=== PATIENT | male | born 2000 | race Hispanic/Latino ===

== ENCOUNTER 2019-08-24 10:54 | Emergency (ER) | payer OTHER ==
[~2019-08-24] VITALS: Ht 177.8 cm; Wt 87.4 kg
[2019-08-24 12:19] LABS: BASO % 0.4 % (0.0-1.0); EOS # 0.1 10^3/uL (0.0-0.5); EOS % 1.1 % (0.0-3.0); HEMATOCRIT 46.4 % (42.0-52.0); HEMOGLOBIN 15.7 g/dl (13.5-17.5); LYMPH # 2.7 10^3/uL (1.5-5.0); LYMPH % 36.6 % (24.0-44.0); MEAN CORPUSCULAR HEMOGLOBIN 30.7 pg (27.0-33.0); MEAN CORPUSCULAR HGB CONC 33.8 g/dl (32.0-36.5); MEAN CORPUSCULAR VOLUME 90.8 fl (80.0-96.0); MONO # 0.5 10^3/uL (0.0-0.8); MONO % 6.4 % (0.0-5.0); NEUTROPHILS # 4.1 10^3/uL (1.5-8.5); NEUTROPHILS % 55.4 % (36.0-66.0); PLATELET COUNT, AUTOMATED 249 10^3/uL (150-450); RED BLOOD COUNT 5.11 10^6/uL (4.30-6.10); WHITE BLOOD COUNT 7.4 10^3/uL (4.0-10.0)
[2019-08-24 12:42] LABS: ALBUMIN 4.4 GM/DL (3.2-5.2); ALT/SGPT 70 U/L (12-78); BILIRUBIN,DIRECT 0.1 MG/DL (0.0-0.2); BILIRUBIN,TOTAL 0.7 MG/DL (0.2-1.0); BLOOD UREA NITROGEN 18 MG/DL (7-18); CALCIUM LEVEL 9.8 MG/DL (8.5-10.1); CARBON DIOXIDE LEVEL 29 MEQ/L (21-32); CHLORIDE LEVEL 105 MEQ/L (98-107); CREATININE FOR GFR 0.89 MG/DL (0.70-1.30); GLUCOSE, FASTING 89 MG/DL (70-100); LIPASE 85 U/L (73-393); POTASSIUM SERUM 3.8 MEQ/L (3.5-5.1); SODIUM LEVEL 139 MEQ/L (136-145); TOTAL PROTEIN 7.6 GM/DL (6.4-8.2)
[2019-08-24 14:00] LABS: CHLAMYDIA DNA AMPLIFICATION NEGATIVE (NEGATIVE); GC DNA AMPLIFICATION NEGATIVE (NEGATIVE)
--- NOTE | 2019-08-24 14:15 | REP ---
SCROTAL ULTRASOUND: Real-time sonographic evaluation of the scrotum and contents performed. The testicles are normal in size and echotexture, right testicle measuring 4.3 x 2.9 x 2.9 cm and left testicle 4.5 x 2.1 x 3.3 cm. There is no vesicular mass or torsion, blood flow is seen in each testicle with duplex Doppler evaluation. Along the superolateral margin of the head of the right epididymis, there is a debris-containing cyst 1.4 x 0.8 x 1.0 cm. IMPRESSION: Normal testicles. Debris-containing cyst along the superolateral margin of the head of the right epididymis. Electronically Signed by Don Ivy MD 08/25/2019 04:45 P
[2019-08-24 14:41] VITALS: BP 117/66
--- NOTE | 2019-08-26 09:52 | ED PDOC ---
Post-Departure Follow-Up scrotal us faxed to dr waters and [facility] for fu Severo Mercedes MD Aug 26, 2019 09:52
== END 2019-08-24 14:57 | disposition home or self-care (01) ==
LOC: M ED 10:54
DX: N50.3 Cyst of epididymis (principal); R36.1 Hematospermia

== ENCOUNTER 2019-12-20 21:25 | Emergency (ER) | payer OTHER ==
[~2019-12-20] VITALS: Ht 180.3 cm; Wt 83.7 kg
[2019-12-20 22:15] LABS: BASO % 0.5 % (0.0-1.0); EOS # 0.1 10^3/uL (0.0-0.5); EOS % 0.9 % (0.0-3.0); HEMATOCRIT 43.2 % (42.0-52.0); HEMOGLOBIN 14.9 g/dl (13.5-17.5); LYMPH # 3.2 10^3/uL (1.5-5.0); LYMPH % 41.4 % (24.0-44.0); MEAN CORPUSCULAR HEMOGLOBIN 30.8 pg (27.0-33.0); MEAN CORPUSCULAR HGB CONC 34.5 g/dl (32.0-36.5); MEAN CORPUSCULAR VOLUME 89.4 fl (80.0-96.0); MONO # 0.4 10^3/uL (0.0-0.8); MONO % 5.6 % (0.0-5.0); NEUTROPHILS % 51.5 % (36.0-66.0); PLATELET COUNT, AUTOMATED 265 10^3/uL (150-450); RED BLOOD COUNT 4.83 10^6/uL (4.30-6.10); WHITE BLOOD COUNT 7.7 10^3/uL (4.0-10.0)
--- NOTE | 2019-12-20 23:03 | REPVR ---
PROCEDURE INFORMATION: Exam: CT Abdomen And Pelvis Without Contrast Exam date and time: 12/20/2019 10:46 PM Age: 19 years old Clinical indication: Abdominal pain; Flank; Right; Additional info: Right flank pain; R/O stone TECHNIQUE: Imaging protocol: Computed tomography of the abdomen and pelvis without contrast. Axial, coronal and sagittal reformatted images were created and reviewed. Radiation optimization: All CT scans at this facility use at least one of these dose optimization techniques: automated exposure control; mA and/or kV adjustment per patient size (includes targeted exams where dose is matched to clinical indication); or iterative reconstruction. COMPARISON: No relevant prior studies available. FINDINGS: Liver: Unremarkable. Gallbladder and bile ducts: No radiodense gallstones. No biliary ductal dilatation. Pancreas: Unremarkable. Spleen: Unremarkable. Adrenal glands: Normal. No mass. Kidneys and ureters: No mass. No radiodense calculi. No hydronephrosis. Stomach and bowel: No bowel wall thickening. No obstruction. No pneumatosis. Appendix: Normal. Intraperitoneal space: No free fluid. No organized fluid collection. No free air. Vasculature: Unremarkable. No aneurysm. Lymph nodes: Calcified mesenteric lymph nodes, consistent with prior granulomatous disease. Urinary bladder: Unremarkable as visualized. Reproductive: Unremarkable. Bones/joints: No acute osseous abnormality. Soft tissues: Unremarkable. IMPRESSION: 1. Limited noncontrast examination without CT evidence of acute intra-abdominal or pelvic pathology. 2. Additional findings, as above. Electronically signed by: Finesse Carrillo On 12/20/2019 23:02:42 PM
[2019-12-20 23:34] LABS: ALT/SGPT 40 U/L (12-78); BILIRUBIN,DIRECT < 0.1 MG/DL (0.0-0.2); BILIRUBIN,TOTAL 0.5 MG/DL (0.2-1.0); LIPASE 92 U/L (73-393); TOTAL PROTEIN 7.2 GM/DL (6.4-8.2)
[2019-12-20 23:48] VITALS: BP 137/68
== END 2019-12-20 23:57 | disposition home or self-care (01) ==
LOC: M ED 21:25
DX: R10.11 Right upper quadrant pain (principal)

== ENCOUNTER 2020-01-05 19:39 | Emergency (ER) | payer OTHER ==
[~2020-01-05] VITALS: Ht 180.3 cm; Wt 82.2 kg
[2020-01-05 21:07] LABS: BASO % 0.2 % (0.0-1.0); HEMATOCRIT 44.3 % (42.0-52.0); HEMOGLOBIN 15.3 g/dl (13.5-17.5); LYMPH # 1.9 10^3/uL (1.5-5.0); MEAN CORPUSCULAR HEMOGLOBIN 30.4 pg (27.0-33.0); MEAN CORPUSCULAR HGB CONC 34.5 g/dl (32.0-36.5); MEAN CORPUSCULAR VOLUME 87.9 fl (80.0-96.0); MONO # 0.6 10^3/uL (0.0-0.8); MONO % 5.3 % (0.0-5.0); NEUTROPHILS # 7.9 10^3/uL (1.5-8.5); NEUTROPHILS % 76.3 % (36.0-66.0); PLATELET COUNT, AUTOMATED 267 10^3/uL (150-450); RED BLOOD COUNT 5.04 10^6/uL (4.30-6.10); WHITE BLOOD COUNT 10.4 10^3/uL (4.0-10.0)
--- NOTE | 2020-01-05 21:07 | REPVR ---
PROCEDURE INFORMATION: Exam: XR Chest, 2 Views Exam date and time: 01/05/2020 8:57 PM Age: 19 years old Clinical indication: Chest pain TECHNIQUE: Imaging protocol: XR of the chest Views: 2 views. COMPARISON: No relevant prior studies available. FINDINGS: Lungs: Unremarkable. No consolidation. Pleural space: Unremarkable. No pleural effusion. No pneumothorax. Heart/Mediastinum: Unremarkable. No cardiomegaly. Bones/joints: Unremarkable. IMPRESSION: No acute findings. Electronically signed by: Reza Mclain On 01/05/2020 21:07:07 PM
[2020-01-05 21:23] LABS: INR 0.99; PROTHROMBIN TIME 13.3 SECONDS (12.5-14.3)
[2020-01-05 21:24] LABS: PARTIAL THROMBOPLASTIN TIME 27.2 SECONDS (24.2-38.5)
[2020-01-05 21:26] LABS: D-DIMER QUANT 385.58 ng/ml (<500)
[2020-01-05 21:35] LABS: ERYTHROCYTE SEDIMENTATION RATE 3 mm/hr (0-15)
[2020-01-05 21:44] LABS: C REACTIVE PROTEIN QUANTITATIV < 0.30 MG/DL (0.00-0.30); CPK CREATINE PHOSPHOKINASE 6485 U/L (39-308); MB/CK RELATIVE INDEX 0.11 (< OR =4); TROPONIN I < 0.02 NG/ML (< 0.10)
[2020-01-05] MEDS ORDERED: NS 1,000 ML IV ONE ×2 (22:00→22:45)
[2020-01-05 23:13] VITALS: BP 139/75
--- NOTE | 2020-01-11 17:01 | ECGEPIP ---
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
== END 2020-01-05 23:29 | disposition home or self-care (01) ==
LOC: M ED 19:39
DX: M62.82 Rhabdomyolysis (principal); R94.31 Abnormal electrocardiogram [ECG] [EKG]

== ENCOUNTER 2020-02-15 18:07 | Emergency (ER) | payer OTHER ==
[~2020-02-15] VITALS: Ht 180.3 cm; Wt 81.8 kg
[2020-02-15] MEDS ORDERED: ASPIRIN 81 MG CHEW TABLET PO ONE (19:00)
--- NOTE | 2020-02-15 19:22 | REP ---
INDICATION: CHEST PAIN COMPARISON: 01/05/2020 TECHNIQUE: PA and lateral. FINDINGS: The mediastinum and cardiac silhouette are normal. The lung renee are clear and without acute consolidation, effusion, or pneumothorax. The skeletal structures are intact and normal. IMPRESSION: No acute cardiopulmonary process. <Electronically signed by Camilo Ellis > 02/15/20 1917
[2020-02-15 19:37] LABS: BASO % 0.4 % (0.0-1.0); EOS # 0.1 10^3/uL (0.0-0.5); EOS % 0.8 % (0.0-3.0); HEMOGLOBIN 13.6 g/dl (13.5-17.5); LYMPH # 2.7 10^3/uL (1.5-5.0); LYMPH % 37.8 % (24.0-44.0); MEAN CORPUSCULAR HEMOGLOBIN 29.8 pg (27.0-33.0); MEAN CORPUSCULAR HGB CONC 33.2 g/dl (32.0-36.5); MEAN CORPUSCULAR VOLUME 89.7 fl (80.0-96.0); MONO # 0.4 10^3/uL (0.0-0.8); NEUTROPHILS % 55.9 % (36.0-66.0); PLATELET COUNT, AUTOMATED 270 10^3/uL (150-450); RED BLOOD COUNT 4.57 10^6/uL (4.30-6.10); WHITE BLOOD COUNT 7.2 10^3/uL (4.0-10.0)
[2020-02-15 19:51] LABS: INR 0.98; PROTHROMBIN TIME 13.2 SECONDS (12.5-14.3)
[2020-02-15 19:52] LABS: PARTIAL THROMBOPLASTIN TIME 28.9 SECONDS (24.2-38.5)
[2020-02-15 19:54] LABS: D-DIMER QUANT 326.05 ng/ml (<500)
[2020-02-15 20:11] LABS: ALBUMIN 4.1 GM/DL (3.2-5.2); ALT/SGPT 49 U/L (12-78); BILIRUBIN,DIRECT 0.1 MG/DL (0.0-0.2); BILIRUBIN,TOTAL 0.4 MG/DL (0.2-1.0); BLOOD UREA NITROGEN 14 MG/DL (7-18); CALCIUM LEVEL 8.9 MG/DL (8.5-10.1); CARBON DIOXIDE LEVEL 26 MEQ/L (21-32); CHLORIDE LEVEL 111 MEQ/L (98-107); CK-MB VALUE MASS 1.1 NG/ML (<3.6); CPK CREATINE PHOSPHOKINASE 189 U/L (39-308); CREATININE FOR GFR 0.83 MG/DL (0.70-1.30); FREE T4 1.02 NG/DL (0.76-1.46); GLOMERULAR FILTRATION RATE > 60.0 (>60); GLUCOSE, FASTING 113 MG/DL (70-100); LIPASE 91 U/L (73-393); MB/CK RELATIVE INDEX 0.58 (< OR =4); POTASSIUM SERUM 4.2 MEQ/L (3.5-5.1); SODIUM LEVEL 142 MEQ/L (136-145); THYROID STIMULATING HORMONE 0.643 uIU/ML (0.358-3.740); TROPONIN I < 0.02 NG/ML (< 0.10)
[2020-02-15 21:23] VITALS: BP 143/73
--- NOTE | 2020-02-16 07:27 | ECGEPIP ---
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
== END 2020-02-15 21:25 | disposition home or self-care (01) ==
LOC: M ED 18:07
DX: R07.9 Chest pain, unspecified (principal); R00.1 Bradycardia, unspecified

== ENCOUNTER 2020-05-30 20:48 | Emergency (ER) | payer OTHER ==
[~2020-05-30] VITALS: Ht 177.8 cm; Wt 91.8 kg
[2020-05-31 02:30] VITALS: BP 103/51
--- NOTE | 2020-05-31 02:36 | REPVR ---
PROCEDURE INFORMATION: Exam: XR Chest Exam date and time: 05/31/2020 1:57 AM Age: 19 years old Clinical indication: Chest wall pain TECHNIQUE: Imaging protocol: XR of the chest. Views: 2 views. COMPARISON: CR Chest, 2 view PA, Lat 02/15/2020 6:59 PM FINDINGS: Lungs: Unremarkable. No consolidation. Pleural spaces: Unremarkable. No pleural effusion. No pneumothorax. Heart/Mediastinum: Unremarkable. No cardiomegaly. Bones/joints: Unremarkable. IMPRESSION: No acute findings. Electronically signed by: Jesus Tolbert On 05/31/2020 02:36:20 AM
[2020-05-31] MEDS ORDERED: NAPR-837 PO (03:19)
[2020-05-31] MEDS ORDERED: NAPROXEN 250 MG TAB PO ONE (03:20)
--- NOTE | 2020-06-01 12:38 | ECGEPIP ---
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
== END 2020-05-31 03:38 | disposition home or self-care (01) ==
LOC: M ED 20:48
DX: R07.89 Other chest pain (principal); R94.31 Abnormal electrocardiogram [ECG] [EKG]